=== PATIENT | female | born 1995 | race Caucasian/White ===

== ENCOUNTER → 2020-11-20 | Outpatient (CLI) | payer OTHER ==
[2020-11-20 18:12] LABS: HEMOGLOBIN 11.6 gm/dl (12.3-15.3); RED BLOOD COUNT 4.08 M/UL (4.00-5.10); WHITE BLOOD COUNT 6.5 K/UL (4.5-11.0)
[2020-11-20 18:22] LABS: BUN/CREATININE RATIO 23 (0-10)
[2020-11-22 18:12] LABS: EBV AB VCA, IGG 75.2 U/mL (0.0-17.9); EBV AB VCA, IGM >160.0 U/mL (0.0-35.9); EBV NUCLEAR ANTIGEN AB, IGG <18.0 U/mL (0.0-17.9)
== END ==
LOC: LAB 17:26
PROVIDERS: Nurse Practitioner
DX: R59.0 Localized enlarged lymph nodes (principal)
CPT/HCPCS: 80053; 84439; 84443; 85025